=== PATIENT | female | born 1980 | race Caucasian/White ===

== ENCOUNTER 2022-02-20 07:43 | Day surgery (SDC) | payer OTHER ==
[2022-02-15 14:55] LABS: BASOPHILS # (AUTO) 0.1 X10'3 (0-0.2); BASOPHILS % (AUTO) 1.4 % (0-1); EOSINOPHILS % (AUTO) 0 % (0-6); LYMPHOCYTES # (AUTO) 1.9 X10'3 (1.1-4.8); LYMPHOCYTES % (AUTO) 28.2 % (21-51); MEAN CORPUSCULAR HEMOGLOBIN 30.2 PG (27.0-31.0); MEAN CORPUSCULAR HGB CONC 33.9 g/dL (33.0-36.5); MEAN CORPUSCULAR VOLUME 88.9 FL (78-98); MEAN PLATELET VOLUME 6.7 FL (7.4-10.4); MONOCYTES # (AUTO) 0.5 X10'3 (0-0.9); MONOCYTES % (AUTO) 7.9 % (2-12); NEUTROPHILS # (AUTO) 4.3 X10'3 (1.8-7.7); NEUTROPHILS % (AUTO) 62.5 % (42-75); PRE OP HEMOGLOBIN 13.2 g/dL (12.0-16.0); PRE OP PLATELET COUNT 344 X10'3 (140-440); RED BLOOD COUNT 4.38 X10'6 (4.20-5.60); RED CELL DISTRIBUTION WIDTH 14.6 % (11.5-14.5)
[2022-02-15 15:12] LABS: PRE OP PROTIME 10.4 SECONDS (9.0-12.0)
[2022-02-15 15:16] LABS: ALBUMIN 3.4 G/DL (3.4-5.0); ALBUMIN/GLOBULIN RATIO 0.8 (1.1-1.5); ALKALINE PHOSPHATASE 88 IU/L (46-116); BLOOD UREA NITROGEN 11 MG/DL (7-18); BUN/CREATININE RATIO 12.9 (6.6-38.0); CHLORIDE 104 MMOL/L (99-107); CREATININE 0.85 MG/DL (0.40-0.90); PRE OP ALT 13 U/L (30-65); PRE OP ANION GAP 8 (8-16); PRE OP AST 13 U/L (10-37); PRE OP BILIRUB, TOTAL 0.4 MG/DL (0.0-1.0); PRE OP GLUCOSE 105 MG/DL (70-104); PRE OP POTASSIUM 3.7 MMOL/L (3.4-5.1); PRE OP SODIUM 141 MMOL/L (135-145); TOTAL CARBON DIOXIDE 28.8 MMOL/L (24-32); TOTAL PROTEIN 7.9 G/DL (6.4-8.2); eGFR 74 ML/MIN
[2022-02-15 15:19] LABS: HCG SERUM QL NEGATIVE
[~2022-02-20] VITALS: Ht 170.2 cm; Wt 163.3 kg
[2022-02-20] VITALS (22 sets, daily range): BP systolic 130–177; BP diastolic 68–104
--- NOTE | 2022-02-20 06:30 | NUR ---
Problems reprioritized. Patient report given, questions answered & plan of care reviewed with ZACH Drew.
[~2022-02-20 07:43] MED LIST: AMLO10TA13 PO; B12 IM; BACL10TA2 PO; DOCUMENT DATE & TIME OF BETA-BLOCKER PO ONE; DULOXETINE PO; FLUT16SP2 BOTHNARES; FOLI0.4T6 PO; HYDR200T84 PO; HYDR25TA4 PO; HYDROmorphone 1 mg/ml syringe IV PRN; HYDROmorphone inj. 0.5 MG/0.5 ML DISP.SYRIN IV PRN; IRON PO; LEVO175T62 PO; MAGN500C4 PO; METH2.5T55 PO; METO-384 PO; MULT-1085 PO; NABU-141 PO; NABUMETONE PO PRN; NORG1TAB13 PO; OMEP20TA43 PO; SULF500T9 PO; acetaminophen 325mg tablet PO ONE; acetaminophen 325mg tablet PO PRN; ceFAZolin inj. 3,000 MG in normal saline 100ml IV soln 100 ML IV ONE; celeCOXIB 100mg capsule PO ONE; famotidine 20mg tablet PO ONE; fluticasone nasal spray 16GM bottle NS PRN; gabapentin 300mg capsule PO ONE; magnesium hydroxide 30ml (MOM) UD suspension PO PRN; metoclopramide 5 mg/ml inj IV ONE; naloxone 0.4 mg/ml inj IV PRN; ondansetron/PF 4mg/2ml inj IV PRN; oxyCODONE/APAP 10/325mg tablet PO PRN; tranexamic acid inj. 1,000 MG in 0.7% saline 100 ML PMX IV ONE; vancomycin 1,500 MG in NS 300ml IV soln IV ONE
[2022-02-20] MEDS ORDERED: ceFAZolin/D5W- 1GM premix 50 ML IV SCH (08:00)
[2022-02-20] MEDS: oxyCODONE SR 10mg (sust. release) tab -2 tabs (20mg) PO ONE ×3 (08:33→12:55)
[2022-02-20] MEDS: ringers solution, lacted 1,000 ML IV SCH (08:34)
--- NOTE | 2022-02-20 09:14 | NUR ---
csm intact, ointment used as ordered, dvd watched online, showers taken as ordered.
--- NOTE | 2022-02-20 09:15 | NUR ---
correction to previous note on prep, patient did not use ointment, not ordered by physician.
[2022-02-20] MEDS ORDERED: ketorolac trometh. 30mg/ml inj. ONE (12:22)
[2022-02-20] MEDS ORDERED: vancomycin 1,000mg inj ONE (12:22)
[2022-02-20] MEDS ORDERED: cloNIDine hcl/PF 100mcg/ml inj ONE (12:22)
[2022-02-20] MEDS ORDERED: epiNEPHrine 1 mg/ml inj ONE (12:22)
[2022-02-20] MEDS ORDERED: ROPIVAcaine 0.5% (5mg/ml) 30ml vial ONE ×2 (12:22→14:04)
[2022-02-20] MEDS ORDERED: midazolam 1 mg/ML 2ml injection ONE ×2 (13:10→13:30)
[2022-02-20] MEDS ORDERED: fentaNYL/PF 50MCG/1 ML 2ML syringe ONE ×2 (13:29→14:10)
[2022-02-20] MEDS ORDERED: diphenhydrAMINE 50 mg/ml inj ONE (14:02)
[2022-02-20] MEDS ORDERED: hydrALAZINE 20mg/ml inj. IV ONE (14:02)
[2022-02-20] MEDS ORDERED: propofol inj 40 ML IV ONE (14:02)
[2022-02-20] MEDS ORDERED: labetalol 20mg/4ml (5mg/ml) syringe IV ONE (14:02)
[2022-02-20] MEDS ORDERED: morphine 2 MG/ML inj. syringe IV PRN (14:20)
[2022-02-20] MEDS ORDERED: proCHLORperazine 10 MG/2 ml inj IV PRN (14:20)
[2022-02-20] MEDS ORDERED: ROPIVAcaine 0.2% (10 MG/5 ML) BOLUS INJECTION ADDCANAL PRN (14:20)
[2022-02-20] MEDS ORDERED: ringers solution, lacted 1,000 ML IV SCH (14:20)
[2022-02-20] MEDS ORDERED: ondansetron/PF 4mg/2ml inj IV PRN (14:20)
[2022-02-20] MEDS ORDERED: ROPIVAcaine 0.2%/PF PUMP/bolus 545 ML ADDCANAL SCH (14:20)
[2022-02-20] MEDS ORDERED: meperidine/PF 25mg/ml syringe IV PRN ×2 (14:20)
[2022-02-20] MEDS ORDERED: morphine 4 MG/ML inj SYRINge IV PRN (14:20)
[2022-02-20] MEDS ORDERED: vasoPRESSIN 20 units/ml inj. ONE (14:47)
[2022-02-20] MEDS ORDERED: enalaprilat dihydrate 2.5mg/2ml vial IV ONE (14:55)
--- NOTE | 2022-02-20 15:12 | NUR ---
Received from OR via HOSPITAL BED, accompanied by Anesthesiologist JJ and report given by Anesthesiolgist. OIL FIELD RIG BUILDER PRESENT. PT ARRIVES AAOX4, RESPONDING APPROPRIATELY TO QUESTIONS, ON RA, VSS. SEAMUS DRESSING FLASHING GREEN, KNEE BRACE ON WITH ICE PACK, SCD'S RUNNING. DRESSING ON R HIP DRY AND INTACT. Addendum: 02/20/22 at 1528 by Logan Stephenson RN Amended: Links added.
[2022-02-20] MEDS: meperidine/PF 25mg/ml syringe IV PRN (15:46)
[2022-02-20] MEDS ORDERED: tranexamic acid inj. 1,600 MG in normal saline 100ml IV soln 84 ML IV ONE ×2 (17:00→19:45)
--- NOTE | 2022-02-20 17:45 | NUR ---
received report and pt arrived via bed to 4010A, Pt needs to void, placed on bedpan. SO present at bedside.
[2022-02-20] MEDS ORDERED: vancomycin inj 1,750 MG in normal saline 500ml IV soln 350 ML IV ONE (20:00)
[2022-02-20] MEDS: ascorbic acid 500mg tablet PO SCH (20:32)
[2022-02-20] MEDS: gabapentin 300mg capsule PO SCH (20:32)
[2022-02-20] MEDS: hydroxychloroquine 200mg tablet PO SCH (20:33)
[2022-02-20] MEDS ORDERED: pantoprazole 40mg Tablet.DR PO SCH (21:00)
[2022-02-20] MEDS ORDERED: metoprolol tartrate 50mg tablet PO SCH (21:00)
[2022-02-20] MEDS ORDERED: amLODIPine 5mg tablet PO SCH (21:00)
[2022-02-20] MEDS ORDERED: duloxetine 30mg CAPSULE.DR PO SCH (21:00)
[2022-02-20] MEDS ORDERED: sennosides 8.6mg tablet PO SCH (21:00)
[2022-02-20] MEDS ORDERED: diphenhydrAMINE 25mg capsule PO PRN ×2 (21:00)
[2022-02-20] MEDS: cefazolin/dext.iso 2gm/100ml 100 ML IV SCH (21:16)
[2022-02-20] MEDS: potassium cl 20mEq in 1/2 NS 1,000 ML IV SCH ×2 (21:16→23:29)
[2022-02-20] MEDS: sulfaSALAZINE 500 MG tablet PO SCH (21:53)
[2022-02-20] MEDS: oxyCODONE/APAP 10/325mg tablet PO PRN (21:56)
[2022-02-21 02:00] VITALS: BP 139/72
[2022-02-21] MEDS: cefazolin/dext.iso 2gm/100ml 100 ML IV SCH (04:21)
[2022-02-21] MEDS: oxyCODONE/APAP 10/325mg tablet PO PRN (04:26)
--- NOTE | 2022-02-21 06:30 | NUR ---
Patient in room ORTHO 4010. I have received report from ZACH Alcaraz and had the opportunity to ask questions and assume patient care.
[2022-02-21] MEDS: ringers solution, lacted 1,000 ML IV SCH (07:05)
[2022-02-21] MEDS: meperidine/PF 25mg/ml syringe IV PRN (07:06)
[2022-02-21 07:10] LABS: BASOPHILS % (AUTO) 0.5 % (0-1); EOSINOPHILS % (AUTO) 0 % (0-6); HEMATOCRIT 31.5 % (35.0-45.0); HEMOGLOBIN 10.6 g/dl (12.0-16.0); LYMPHOCYTES # (AUTO) 1.5 X10'3 (1.1-4.8); LYMPHOCYTES % (AUTO) 25.3 % (21-51); MEAN CORPUSCULAR HEMOGLOBIN 30.1 PG (27.0-31.0); MEAN CORPUSCULAR HGB CONC 33.6 g/dL (33.0-36.5); MEAN CORPUSCULAR VOLUME 89.5 FL (78-98); MEAN PLATELET VOLUME 6.6 FL (7.4-10.4); MONOCYTES # (AUTO) 0.6 X10'3 (0-0.9); MONOCYTES % (AUTO) 9.4 % (2-12); NEUTROPHILS # (AUTO) 3.8 X10'3 (1.8-7.7); NEUTROPHILS % (AUTO) 64.8 % (42-75); PLATELET COUNT 282 X10'3 (140-440); RED BLOOD COUNT 3.52 X10'6 (4.20-5.60); RED CELL DISTRIBUTION WIDTH 14.4 % (11.5-14.5); WHITE BLOOD COUNT 5.9 X10'3 (4.5-11.0)
[2022-02-21] MEDS: potassium cl 20mEq in 1/2 NS 1,000 ML IV SCH (07:29)
[2022-02-21 07:31] LABS: ANION GAP 3 (8-16); CHLORIDE 106 MMOL/L (99-107); SODIUM 136 MMOL/L (135-145); TOTAL CARBON DIOXIDE 26.8 MMOL/L (24-32)
[2022-02-21] MEDS: gabapentin 300mg capsule PO SCH (07:55)
[2022-02-21] MEDS: ascorbic acid 500mg tablet PO SCH (07:55)
[2022-02-21] MEDS: sulfaSALAZINE 500 MG tablet PO SCH (07:55)
[2022-02-21] MEDS: hydroxychloroquine 200mg tablet PO SCH (07:55)
[2022-02-21] MEDS ORDERED: levoTHYROXINE 175mcg tablet PO SCH (08:00)
[2022-02-21] MEDS ORDERED: multivitamins, therapeutics tablet PO SCH (08:00)
[2022-02-21] MEDS ORDERED: HYDROchlorothiazide 25mg tablet PO SCH (08:00)
[2022-02-21] MEDS ORDERED: baclofen 10mg tablet PO PRN (08:00)
[2022-02-21] MEDS ORDERED: magnesium oxide 400mg tablet PO SCH (08:00)
[2022-02-21] MEDS ORDERED: bisacodyl 10mg suppository rectal RC PRN (08:00)
[2022-02-21] MEDS ORDERED: aspirin 325mg tablet PO SCH (08:30)
[2022-02-21] MEDS ORDERED: celeCOXIB 100mg capsule PO SCH (20:00)
[2022-02-21] MEDS ORDERED: TRI SPRINTEC PO SCH (21:00)
== END 2022-02-21 10:10 | disposition home or self-care (01) ==
LOC: PAS 07:43 → ORTHO 4S 17:00 → UNDOADMIN 19:09 → PAS 02-21 10:10
PROVIDERS: ATTEND Orthopaedic Surgery
DX: M17.11 Unilateral primary osteoarthritis, right knee (principal); G89.18 Other acute postprocedural pain; E03.9 Hypothyroidism, unspecified; E66.01 Morbid (severe) obesity due to excess calories; Z68.43 Body mass index [BMI] 50.0-59.9, adult; I10 Essential (primary) hypertension; F32.A Depression, unspecified; F41.9 Anxiety disorder, unspecified; K21.9 Gastro-esophageal reflux disease without esophagitis; G47.33 Obstructive sleep apnea (adult) (pediatric); Z98.890 Other specified postprocedural states; Z79.899 Other long term (current) drug therapy; Z79.01 Long term (current) use of anticoagulants; Z87.891 Personal history of nicotine dependence; Z72.89 Other problems related to lifestyle; Z79.82 Long term (current) use of aspirin; Z88.8 Allergy status to other drugs, medicaments and biological substances
CPT/HCPCS: 27447; 36415; 64448; 73560; 76942; 80051; 80053; 82948; 84703; 85025; 85610; 85730; 86885; 86900; 86901; 87081; 97116; 97161; 97530; C1713; C1776; J0171; J0360; J0690; J0735; J1170; J1200; J1885; J2175; J2250; J2704; J2765; J2795; J3010; J3370; J3480; J3490; J7030; J7040; J7120; Z7506; Z7508; Z7512; A4215; A7000; G0378